=== PATIENT | male | born 1975 | race Two or more races ===

== ENCOUNTER 2024-12-04 23:32 | Emergency (ER) | payer SELFPAY ==
[2024-12-04 23:40] VITALS: BMI 24.2
[2024-12-04 23:45] VITALS: BP 181/118; PULSE 80; RESP 19; TEMP 35.5; O2SAT 98
--- NOTE | 2024-12-05 00:07 | EDNOTE_ITS ---
ED Medical Clearance RME/HPI General Chief complaint: Medical Clearance Stated complaint: GROUP HOME CLEARANCE Time Seen by Provider: 12/04/24 23:57 Arrival date/time: 12/04/24 23:32 49M with history of HTN presents to ED with PD for fpc clearance. Patient was sent here due to high BP. No complaints. Limitations: no limitations Related Information Home Medications ?Medication ?Instructions ?Recorded ?Confirmed Unobtainable 03/05/18 03/05/18 Allergies Allergy/AdvReac Type Severity Reaction Status Date / Time No Known Allergies Allergy Verified 12/04/24 23:38 Review of Systems Review of Systems Systems Reviewed: All systems reviewed, normal except as documented Past Medical History Social History SMOKING STATUS: Never smoker ED Exam General Limitations: Present no limitations General appearance: Present alert and in no apparent distress Head Head exam: Present atraumatic Neck Neck exam: Present normal inspection, full ROM and trachea midline Chest Chest inspection: Present normal inspection and symmetric chest wall rise Extremities Exam Extremities exam: Present normal inspection and full ROM Neurological Exam Neurological exam: Present alert and oriented X3 Psychiatric Psychiatric exam: Present normal affect and normal mood Skin Skin exam: Present warm, dry, intact and normal color Course Quality Measures none Orders Category Date Time Status hydrALAZINE HCL [Apresoline] Med 12/04/24 23:58 Discontinued 25 mg PO X1 ONE Vital Signs Vital signs: Vital Signs Temperature 96 F L 12/04/24 23:45 Pulse Rate 80 12/04/24 23:45 Respiratory Rate 19 12/04/24 23:45 Blood Pressure 181/118 H 12/04/24 23:45 Pulse Oximetry (%) 98 12/04/24 23:45 Oxygen Delivery Method Room Air 12/04/24 23:45 O2 at 98% on RA and WNLs Medical Clearance MDM Narrative MDM Narrative:: 49M with history of HTN presents to ED with PD for fpc clearance. Patient was sent here due to high BP. No complaints. Physical exam reveals calm-appearing male. Patient is afebrile and alert. Meds reduced BP. Patient data External records reviewed:: [facility] previous records Clinical information provided by:: patient and law enforcement Social determinants that could affect healthcare access:: none Patient has the following chronic illnesses:: HTN How is presenting disease/condition affected by chronic disease/condition?: caused by Evaluation data The following diagnostics were reviewed and interpreted by me:: other (specify) (none) Lab and/or radiology exams considered but not ordered:: not ordred Interpretation Summary: n/a Medications / Prescriptions Medications or Prescriptions considered but not ordered:: ordered Medication administrations:: Medication Administration History Discontinued Medications Hydralazine HCl (Hydralazine Hcl 25 Mg Tablet) 25 mg PO X1 ONE Stop: 12/04/24 23:59 Last Admin: 12/05/24 00:09 Dose: 25 mg Documented By: AC above Consultations Consultation(s) initiated? (list below): No Diagnosis Medical Clearance Differential Diagnosis: other (fpc clearance, HTN, elevated BP) Most likely diagnosis given after review of the tests above:: fpc clearance Admission Indicated Admission indicated?: not indicated Admission Request Was there a request for admission?: No Disposition Plan Disposition Plan: Discharge Discharge Attestation Discharge Attestation: The patient and all family members were given an opportunity to ask questions and understood the discharge instructions. Discharge instructions specifically effects, indications for sooner follow up or return to the emergency department, and the expected course of current diagnosis. Patient condition: Stable Discharge Plan Plan Patient Disposition: Alf/Court/Law Prescriptions/Referrals Prescriptions/Med Rec: No Action Unobtainable Referrals: No Primary/Family,Physician [Primary Care Provider] - In 1 week Problem List Clinical Impression: Medical clearance for incarceration Patient/Caregiver Discharge Instructions Print Language: Greenlandic Stand Alone Forms: Patient Portal Info Letter BRANDON/HERB Supervising Physician TO Supervising Physician: Dr. Villa
[2024-12-05 00:09] VITALS: BP 187/121; PULSE 81
[2024-12-05 00:55] VITALS: BP 167/102; PULSE 85; RESP 18; O2SAT 98
== END 2024-12-05 00:59 ==
PROVIDERS: Emergency Provider Emergency Medicine
DX: Z02.89 Encounter for other administrative examinations (principal); I10 Essential (primary) hypertension
CPT/HCPCS: 99283; A9270